=== PATIENT | female | born 1950 | race Caucasian/White ===

== ENCOUNTER 2018-03-01 09:55 | Observation (INO) | payer OTHER ==
[~2018-03-01] VITALS: Ht 154.9 cm; Wt 49.7 kg
[2018-03-01 11:01] LABS: BASOPHIL (%) 0.2 % (0-1); EOSINOPHIL (%) 0 % (0-5); HEMOGLOBIN 13.6 G/DL (11.9-15.5); IMMATURE GRANULOCYTE (%) 0.4 % (0.0-0.7); LYMPHOCYTE (%) 3.7 % (15-42); LYMPHOCYTE COUNT 0.7 K/uL (1.0-2.8); MCH 31.1 PG (29.0-34.0); MCHC 34.9 G/DL (30.0-36.0); MCV 89.2 FL (83-99); MONOCYTE (%) 4.2 % (3-12); MONOCYTE COUNT 0.8 K/uL (0-0.8); NEUTROPHIL (%) 91.5 % (45-76); NEUTROPHIL COUNT 16.9 K/uL (1.8-6.4); PLATELET COUNT 270 K/uL (156-360); RBC DIS.WIDTH-CV 12.8 % (11.8-14.6); RBC DIS.WIDTH-SD 42.3 % (39-53); RED BLOOD COUNT 4.37 M/uL (3.80-5.20); WHITE BLOOD COUNT 18.4 K/uL (4.1-10.2)
[2018-03-01 11:10] LABS: ALBUMIN 4.1 g/dL (3.2-4.8); CHLORIDE 104 mEq/L (99-109); POTASSIUM 3.4 mEq/L (3.7-5.4); SODIUM 137 mEq/L (136-147)
[2018-03-01 11:11] LABS: MAGNESIUM 1.9 mg/dL (1.3-2.7)
[2018-03-01 11:12] LABS: GLUCOSE 112 mg/dL (70-99)
[2018-03-01 11:13] LABS: TOTAL PROTEIN 7.6 g/dL (6.4-8.3)
[2018-03-01 11:14] LABS: TOTAL BILIRUBIN 0.9 mg/dL (0.0-1.0)
[2018-03-01 11:16] LABS: ALKALINE PHOSPHATASE 75 IU/L (3-129); CREATININE 0.7 mg/dL (0.6-1.3); GFR ESTIMATE (CALCULATED) > 59 mL/min/
[2018-03-01 11:17] LABS: UREA NITROGEN (BUN) 10 mg/dL (9-23)
[2018-03-01 11:18] LABS: AST (GOT) 30 IU/L (2-34)
[2018-03-01 11:19] LABS: ALT (GPT) 21 IU/L (3-49)
[2018-03-01 11:20] LABS: LIPASE 14 U/L (1.0-51.0)
[2018-03-01 11:26] LABS: APPEARANCE CLOUDY ((CLEAR)); BILIRUBIN NEGATIVE; BLOOD SMALL; COLOR YELLOW ((YELLOW)); GLUCOSE (STRIP) NEGATIVE; KETONES 80; LEUKOCYTES NEGATIVE; NITRITE NEGATIVE; PROTEIN (STRIP) 30; SPECIFIC GRAVITY 1.015 (1.000-1.030); UROBILINOGEN 0.2 MG/DL (0.2-1.0)
[2018-03-01 11:36] LABS: RED BLOOD CELLS TNTC /HPF (0-5); WHITE BLOOD CELLS 0-5 /HPF (0-5)
[2018-03-01 11:37] LABS: BACTERIA 2+ /HPF; EPITHELIAL CELLS 1+ /HPF; MUCUS NONE SEEN /LPF; UCUL ADDED? YES
[2018-03-01] MEDS ORDERED: VITAMIN D31000 UNI2 PO (14:00)
[2018-03-01] MEDS ORDERED: FISH OIL 1,0001 EAC7 PO (14:01)
[2018-03-01] MEDS ORDERED: [UNRECOGNIZED DRUG - OTHER] PO (14:01)
[2018-03-01] MEDS ORDERED: VITAMIN B-12500 MC5 SL (14:02)
[2018-03-01] MEDS ORDERED: COQ-10100 MG PO (14:02)
[2018-03-01 17:14] VITALS: BP 121/63
[2018-03-01 17:29] VITALS: BP 121/63
[2018-03-01 19:33] VITALS: BP 128/71
[2018-03-01 23:16] VITALS: BP 102/54
[2018-03-02 05:06] VITALS: BP 118/72
[2018-03-02 06:16] LABS: HEMATOCRIT 37.7 % (36.0-46.0); HEMOGLOBIN 12.3 G/DL (11.9-15.5); MCH 30.1 PG (29.0-34.0); MCHC 32.6 G/DL (30.0-36.0); MCV 92.2 FL (83-99); PLATELET COUNT 250 K/uL (156-360); RBC DIS.WIDTH-CV 13.4 % (11.8-14.6); RBC DIS.WIDTH-SD 45.8 % (39-53); RED BLOOD COUNT 4.09 M/uL (3.80-5.20); WHITE BLOOD COUNT 12.7 K/uL (4.1-10.2)
[2018-03-02 06:41] LABS: CHLORIDE 105 MEQ/L (99-109); CREATININE 0.8 MG/DL (0.6-1.3); GFR ESTIMATE (CALCULATED) > 59 mL/min/; GLUCOSE 137 mg/dL (70-99); POTASSIUM 3.6 MEQ/L (3.7-5.4); SODIUM 138 MEQ/L (136-147); UREA NITROGEN (BUN) 11 mg/dL (9-23)
[2018-03-02 08:32] VITALS: BP 151/71
[2018-03-02] MEDS ORDERED: COLACE100 MG PO (10:53)
[2018-03-02] MEDS ORDERED: ULTRAM50 MG PO (10:53)
[2018-03-02 12:15] VITALS: BP 165/75
== END 2018-03-02 19:11 | disposition home or self-care (01) ==
LOC: EME 09:55 → EDOF 15:18 → ENRESERV 15:23 → 3EAST 16:51
PROVIDERS: Emergency Medicine; Surgery
PROC: 0DTJ4ZZ Resection of Appendix, Percutaneous Endoscopic Approach (ICD-10-PCS; principal; 2018-03-01)
DX: K35.80 Unspecified acute appendicitis (principal); M81.0 Age-related osteoporosis without current pathological fracture
CPT/HCPCS: 74176; 80048; 80053; 81003; 83690; 83735; 85025; 85027; 87086; 88304; 93005; 99281; 99284; G0378; J0131; J0295; J1170; J1200; J1650; J1885; J2250; J2405; J2765; J3010; J7040; J7050; J7120; S0020